=== PATIENT | male | born 1965 | race Caucasian/White ===

== ENCOUNTER 2018-06-05 10:12 | Emergency (ER) | payer MEDICAID ==
[2018-06-05] MEDS ORDERED: LORazepam 0.5 MG TABLET PO STA ×2 (11:15→12:40)
[2018-06-05] MEDS ORDERED: MECLIZINE 12.5 MG TABLET PO STA (11:15)
--- NOTE | 2018-06-05 11:20 | ED Physician Documentation ---
History of Present Illness - Stated complaint Stated Complaint: DIZZY/ANXIOUS - Chief complaint Chief Complaint: MHE - History obtained from History obtained from: Patient - Additonal information Additional information: Patient is a 52-year-old male who states, "I think I am having an anxiety attack." He reports having dizziness that he describes a spinning sensation when turning his head, intermittently for the past week. It has been worse over the past 2 days. He reports associated nausea, without vomiting. His symptoms are better when he holds his head still. In addition he reports having an episode of anxiety last night after drinking strong coffee. It became worse after arrival in the emergency department when he saw that his blood pressure was elevated at 184/90, and then he received a text message from a "crazy" family member. On further review of systems he denies headache, earache, chest pain or shortness of breath, vomiting, numbness or weakness. Review of Systems Constitutional: reports: Other (spinning sensation with head movement.). denies: Fever, Myalgias Eyes: denies: Irritation Ears: reports: Other (fullness in ears). denies: Tinnitus/ringing Nose: denies: Congestion Throat: denies: Sore throat Cardiac: denies: Chest pain / pressure Respiratory: denies: Dyspnea, Cough GI: reports: Nausea (when dizziness occurs.). denies: Abdominal Pain, Vomiting : denies: Dysuria Skin: denies: Rash Musculoskeletal: denies: Neck pain, Back pain Neurologic: denies: Focal weakness, Numbness, Headache Psychiatric: reports: Anxiety PD PAST MEDICAL HISTORY - Past Medical History Cardiovascular: None Respiratory: None Neuro: None Endocrine/Autoimmune: None - Present Medications Home Medications: Ambulatory Orders Medication Instructions Recorded Confirmed Meclizine HCl [Motion Sickness 25 mg PO Q6HR PRN #20 tablet 06/05/18 Relief] - Allergies Allergies/Adverse Reactions: Allergies Allergy/AdvReac Type Severity Reaction Status Date / Time Penicillins Allergy Rash Verified 06/05/18 10:19 PD ED PE NORMAL - Vitals Vital signs reviewed: Yes (hypertensive) - General General: Alert and oriented X 3, Well developed/nourished, Other (Appears anxious.) - HEENT HEENT: Atraumatic, PERRL, EOMI, Ears normal, Pharynx benign, Other (No nystag mus.) - Neck Neck: Supple, no meningeal sign, No adenopathy, No JVD - Cardiac Cardiac: RRR - Respiratory Respiratory: Clear bilaterally - Abdomen Abdomen: Soft, Non tender - Back Back: No CVA TTP - Derm Derm: No rash - Extremities Extremities: No edema, No calf tenderness / cord - Neuro Neuro: Alert and oriented X 3, No motor deficit, No sensory deficit, Normal speech Results - Vitals Vitals: Vital Signs - 24 hr 06/05/18 06/05/18 10:16 12:18 Temperature 36.0 C L Heart Rate 66 74 Respiratory 20 18 Rate Blood Pressure 184/85 H 157/84 H O2 Saturation 100 100 Oxygen O2 Source Room air - EKG (time done) 11:37 Rate: Rate (enter#) (80) Rhythm: NSR [place]: Normal Intervals: Normal MA QRS: Normal Ischemia: Q waves (V1-V2, consistent with 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 His presentation does not suggest central nervous system cause for his vertigo. In addition his presentation is significant for anxiety due to acute stress reaction. Treatment in the emergency department included administration of Ativan 0.5 mg orally and meclizine 25 mg orally. His symptoms resolved with the above treatment. I discussed with him and his the diagnosis, symptomatic treatment and outpatient follow-up, as well as potentially worrisome signs or symptoms that should prompt reevaluation in the emergency department. He is discharged with a prescription for meclizine. Departure - Departure Disposition: 01 Home, Self Care Clinical Impression: Anxiety Labyrinthitis, acute viral Qualifiers: Laterality: unspecified laterality Qualified Code(s): H83.09 - Labyrinthitis, unspecified ear Condition: Stable Instructions: ED Stress React, ED Labyrinthitis Prescriptions: Meclizine HCl [Motion Sickness Relief] 25 mg PO Q6HR PRN #20 tablet PRN Reason: Dizziness Comments: You can use ibuprofen, up to 800 mg 3 times daily for anti-inflammatory effect. You can take meclizine as prescribed if needed for dizziness. Follow-up with your primary physician within 1 to 2 weeks. Call to schedule an appointment. Return to the emergency department if you develop increasing dizziness, persistent vomiting, or otherwise worsening symptoms. Discharge Date/Time: 06/05/18 13:12
[2018-06-05 12:34] VITALS: BP 157/84
== END 2018-06-05 13:12 | disposition home or self-care (01) ==
LOC: ED 10:12
DX: F41.9 Anxiety disorder, unspecified (principal); H83.09 Labyrinthitis, unspecified ear; R94.31 Abnormal electrocardiogram [ECG] [EKG]
CPT/HCPCS: 93005; 99283; A9270